=== PATIENT | female | born 1960 | race Caucasian/White ===

== ENCOUNTER 2021-11-18 10:21 | Emergency (ER) | payer MEDICAID ==
[~2021-11-18] VITALS: Ht 154.9 cm; Wt 62.6 kg
--- NOTE | 2021-11-18 10:43 | NUR ---
DR LACKEY AT BEDSIDE FOR EVALUATION
[2021-11-18] MEDS ORDERED: LIDOCAINE VISCUS 2% 15 ML UDC MM ONE (11:00)
[2021-11-18] MEDS ORDERED: DICYCLOMINE HCL LIQ 10 MG/5 ML UDC PO ONE (11:00)
[2021-11-18] MEDS ORDERED: MAG HYDROX/AL HYDROX/SIMETH 30 ML LIQUID UDC PO ONE (11:00)
[2021-11-18] MEDS ORDERED: SIMV10TA98 PO (11:01)
[2021-11-18] MEDS ORDERED: TERB250T52 PO (11:01)
[2021-11-18] MEDS ORDERED: BENA20TA9 PO (11:01)
[2021-11-18] MEDS ORDERED: OMEP20CA15 PO (11:01)
[2021-11-18] MEDS ORDERED: ASPI81TA31 PO (11:01)
[2021-11-18] MEDS ORDERED: HYDR25TA4 PO (11:01)
[2021-11-18] MEDS ORDERED: DICYCLOMINE HCL LIQ 10 MG/5 ML UDC ONE (11:02)
[2021-11-18] MEDS ORDERED: LIDOCAINE VISCUS 2% 15 ML UDC ONE (11:02)
[2021-11-18] MEDS ORDERED: MAG HYDROX/AL HYDROX/SIMETH 30 ML LIQUID UDC ONE (11:02)
[2021-11-18 11:20] LABS: HEMATOCRIT 36.9 % (31.2-41.9); MEAN CORPUSCULAR HEMOGLOBIN 30.9 uug (24.7-32.8); MEAN CORPUSCULAR VOLUME 89.1 fL (75.5-95.3); PLATELET COUNT (AUTO) 151 K/uL (179-408)
[2021-11-18 11:21] LABS: CREATININE 0.5 mg/dL (0.6-1.3); POTASSIUM 3.3 mmol/L (3.5-5.1)
[2021-11-18 11:21] LABS: *BILIRUBIN,URIN NEGATIVE (NEGATIVE); *BLOOD, URINE 2+ (NEGATIVE); *CLARITY,URINE CLEAR (CLEAR); *COLOR,URINE YELLOW (YELLOW); *KETONES,URINE NEGATIVE (NEGATIVE); *UROBILINOGEN,URINE 0.2 E.U./dl (NORMAL); LEUKOCYTE ESTERASE ,URINE NEGATIVE (NEGATIVE); NITRITE, URINE NEGATIVE (NEGATIVE); UGLUCOSE NEGATIVE (NEGATIVE)
[2021-11-18 11:26] LABS: BILIRUBIN,DIRECT 0.1 mg/dL (0.0-0.2); BILIRUBIN,TOTAL 0.5 mg/dL (0.2-1.0); TOTAL PROTEIN, SERUM 6.7 g/dL (6.4-8.2)
[2021-11-18] MEDS ORDERED: POTASSIUM CHLORIDE 20 MEQ TAB.PRT.SR PO ONE (12:30)
[2021-11-18] MEDS ORDERED: POTASSIUM CHLORIDE 20 MEQ TAB.PRT.SR ONE (12:32)
[2021-11-18] MEDS ORDERED: DICY20TA11 PO ×2 (12:37→13:03)
[2021-11-18 13:06] VITALS: BP 109/64
[2021-11-18 13:41] LABS: BACTERIA,URINE NONE SEEN /HPF (NONE SEEN); WBC,URINE 0-3 /HPF (0-3)
[2021-11-18 13:42] LABS: SQUAMOUS EPITHELIAL CELL,UR FEW /HPF (NONE SEEN)
== END 2021-11-18 13:06 | disposition home or self-care (01) ==
LOC: ER 10:21
DX: R10.10 Upper abdominal pain, unspecified (principal); R00.1 Bradycardia, unspecified; E87.6 Hypokalemia; R73.03 Prediabetes; Z87.11 Personal history of peptic ulcer disease; K29.70 Gastritis, unspecified, without bleeding; Z79.899 Other long term (current) drug therapy; E78.00 Pure hypercholesterolemia, unspecified; I10 Essential (primary) hypertension
CPT/HCPCS: 36415; 83690; 85025; 93005; A4663